=== PATIENT | female | born 1945 | race Caucasian/White ===

== ENCOUNTER 2017-07-27 15:13 | Outpatient (CLI) | payer MEDICARE, BC ==
[~2017-07-27 15:13] MED LIST: Gadobenate Dimeglumine 529 MG/1 ML (20ML VIAL) ONE
== END 2017-07-27 15:14 | disposition home or self-care (01) ==
LOC: BICMAMMO 15:13
PROVIDERS: ATTEND Internal Medicine
DX: Z78.0 Asymptomatic menopausal state (principal); R40.20 Unspecified coma; I67.82 Cerebral ischemia
CPT/HCPCS: 70553; 77080; A9579

== ENCOUNTER 2017-09-08 10:33 | Outpatient (CLI) | payer MEDICARE, BC ==
[2017-09-08 12:28] LABS: Hemoglobin 15.4 g/dL (12.0-16.0); Platelet Count 246 thou/uL (130-400); RBC Distribution Width 12.6 % (11.5-14.5); Red Blood Cell (RBC) Count 5.31 mill/uL (4.20-5.40); White Blood Cell (WBC) Count 6.6 thou/uL (4.8-10.8)
[2017-09-08 12:42] LABS: PTT 33.1 SEC (22.9-36.1)
[2017-09-08 12:43] LABS: Prothrombin Time 13.7 SEC (12.0-14.7)
[2017-09-08 12:51] LABS: ALT (SGPT) Less than 7 U/L (8-55); AST (SGOT) 22 U/L (5-34); Albumin 4.6 g/dL (3.4-4.8); Alkaline Phosphatase 62 U/L (40-150); Anion Gap 16 mmol/L (10-20); BUN (Urea Nitrogen) 30 mg/dL (9.8-20.1); Bilirubin, Total 0.9 mg/dL (0.2-1.2); Calc. Creatinine Clearance 0 mL/min (70-130); Calcium 9.9 mg/dL (7.8-10.44); Carbon Dioxide 26 mmol/L (23-31); Cardiac Risk 3.2 (Less than 4.5); Chloride 100 mmol/L (98-107); Cholesterol 220 mg/dl (< 200 Desired); Estimated GFR-MDRD 56; Globulin 2.7 g/dL (2.4-3.5); Glucose 87 mg/dL (83-110); HDL Cholesterol 68 mg/dL (>60 Neg Risk); LDL Cholesterol, Calculated 137 mg/dL; Potassium 3.8 mmol/L (3.5-5.1); Protein, Total 7.3 g/dL (6.0-8.3); Sodium 138 mmol/L (136-145); Triglycerides 75 mg/dL (Less than 150)
--- NOTE | 2017-10-05 11:05 | EKG ---
Test Reason : Blood Pressure : / mmHG Vent. Rate : 087 BPM Atrial Rate : 087 BPM P-R Int : 162 ms QRS Dur : 076 ms QT Int : 354 ms P-R-T Axes : 077 064 079 degrees QTc Int : 425 ms Normal sinus rhythm Normal ECG No previous ECGs available Confirmed by YU ANGUIANO M.D. ([id number]) on 10/05/2017 11:05:08 AM Referred By: SILVIO Confirmed By:YU ANGUIANO M.D.
== END 2017-09-08 10:34 | disposition home or self-care (01) ==
LOC: LABBT 10:33
PROVIDERS: ATTEND Internal Medicine Cardiovascular Disease
DX: Z01.810 Encounter for preprocedural cardiovascular examination (principal); I47.2 Ventricular tachycardia
CPT/HCPCS: 80053; 80061; 85027; 85610; 85730; 93005; 93010

== ENCOUNTER 2017-09-10 05:57 | Day surgery (SDC) | payer MEDICARE, BC ==
[2017-09-08 11:06] VITALS: BMI 23.2
[2017-09-10] MEDS ORDERED: Heparin 0 ML ONE (06:42)
[2017-09-10] MEDS ORDERED: Lidocaine 1% (PF) 30 ML VIAL ONE ×2 (06:43→08:14)
[2017-09-10] MEDS ORDERED: Fentanyl 100 MCG/2 ML VIAL ONE (09:03)
[2017-09-10] MEDS ORDERED: Midazolam HCl 2 mg/2 ml Vial ONE (09:03)
== END 2017-09-10 12:15 | disposition home or self-care (01) ==
LOC: CCL 05:57
PROVIDERS: ATTEND Internal Medicine Cardiovascular Disease
PROC: 4A023N7 Measurement of Cardiac Sampling and Pressure, Left Heart, Percutaneous Approach (ICD-10-PCS; principal; 2017-09-10)
DX: I47.2 Ventricular tachycardia (principal); G20 Parkinson's disease; I25.10 Atherosclerotic heart disease of native coronary artery without angina pectoris; Z79.899 Other long term (current) drug therapy
CPT/HCPCS: 76942; 93458; C1769; 99152; J1644; J2001; J2250; J3010

== ENCOUNTER 2018-01-06 15:02 | Emergency (ER) | payer MEDICARE, BC ==
[2018-01-06 17:24] LABS: #Eosinphils 0.1 thou/uL (0.0-0.7); #Lymphocytes 2.1 thou/uL (1.20-3.40); #Monocytes 0.4 thou/uL (0.11-0.59); #Neutrophils 3.5 thou/uL (1.40-6.50); %Basophils 0.6 % (0.0-1.0); %Eosinophils 1.2 % (0.0-10.0); %Lymphocytes 34.9 % (21.0-51.0); %Monocytes 6.3 % (0.0-10.0); %Neutrophils 57.1 % (42.0-75.0); Hemoglobin 13.5 g/dL (12.0-16.0); Mean Corpuscular HGB CONC 33.9 g/dL (32.0-36.0); Mean Corpuscular Hemoglobin 29.9 pg (27.0-31.0); Mean Corpuscular Volume 88.2 fL (78.0-98.0); Mean Platelet Volume 8.3 fL (7.4-10.4); Platelet Count 214 thou/uL (130-400); RBC Distribution Width 12.2 % (11.5-14.5); Red Blood Cell (RBC) Count 4.52 mill/uL (4.20-5.40); White Blood Cell (WBC) Count 6.1 thou/uL (4.8-10.8)
--- NOTE | 2018-01-06 17:33 | CT ---
CT BRAIN WITHOUT CONTRAST: 01/06/18 HISTORY: Right sided facial numbness. FINDINGS: No evidence of acute infarct, hemorrhage, midline shift, or abnormal extra-axial fluid collection is seen. the ventricular size is normal and the basilar cisterns patent. The bony calvarium is intact. T he visualized paranasal sinuses and mastoid air cells are well aerated. IMPRESSION: No CT evidence of acute intracranial process. POS: [facility]
[2018-01-06 17:42] LABS: ALT (SGPT) Less than 7 U/L (8-55); AST (SGOT) 20 U/L (5-34); Albumin 4.4 g/dL (3.4-4.8); Alkaline Phosphatase 60 U/L (40-150); Anion Gap 15 mmol/L (10-20); BUN (Urea Nitrogen) 25 mg/dL (9.8-20.1); Bilirubin, Total 0.5 mg/dL (0.2-1.2); Calc. Creatinine Clearance 0 mL/min (70-130); Calcium 9.3 mg/dL (7.8-10.44); Carbon Dioxide 24 mmol/L (23-31); Chloride 108 mmol/L (98-107); Estimated GFR-MDRD 68; Globulin 2.6 g/dL (2.4-3.5); Glucose 88 mg/dL (83-110); Potassium 3.7 mmol/L (3.5-5.1); Sodium 143 mmol/L (136-145)
== END 2018-01-06 18:51 | disposition home or self-care (01) ==
LOC: ERS 15:02
DX: Q67.0 Congenital facial asymmetry (principal); G20 Parkinson's disease; I10 Essential (primary) hypertension
CPT/HCPCS: 36415; 70450; 80053; 85025; 93005

== ENCOUNTER 2018-01-22 12:20 | Outpatient (CLI) | payer MEDICARE, BC | END 2018-01-22 12:21 | disposition home or self-care (01) | LOC: BICMRI 12:20 | PROVIDERS: ATTEND Internal Medicine | DX: H02.401 Unspecified ptosis of right eyelid (principal) | CPT/HCPCS: 36415; 70544; 70551; 83519 ==

== ENCOUNTER 2018-06-29 15:53 | Outpatient (CLI) | payer MEDICARE, BC ==
--- NOTE | 2018-06-29 17:11 | RAD ---
PA AND LATERAL VIEWS OF THE CHEST: 06/29/18 HISTORY: Cough. FINDINGS: Comparison made with exam of 11/28/17. The heart size is borderline and stable. The lungs are well expanded without focal areas of consolida tion, pneumothoraces or pleural effusions. There are degenerative changes in the spine. Mild chronic changes are again seen. IMPRESSION: No radiographic evidence of acute cardiopulmonary process. POS: [facility]
== END 2018-06-29 15:54 | disposition home or self-care (01) ==
LOC: SCSRAD 15:53
PROVIDERS: ATTEND Physician Assistant
DX: R05 Cough (principal)
CPT/HCPCS: 71046

== ENCOUNTER 2018-08-06 09:08 | Outpatient (CLI) | payer MEDICARE, BC ==
[2018-08-06 09:51] LABS: ALT (SGPT) Less than 6 U/L (8-55); AST (SGOT) 22 U/L (5-34); Albumin 4.2 g/dL (3.4-4.8); Alkaline Phosphatase 74 U/L (40-150); Anion Gap 12 mmol/L (10-20); BUN (Urea Nitrogen) 17 mg/dL (9.8-20.1); Bilirubin, Total 0.7 mg/dL (0.2-1.2); Calc. Creatinine Clearance 0 mL/min (70-130); Calcium 9.2 mg/dL (7.8-10.44); Carbon Dioxide 27 mmol/L (23-31); Cardiac Risk 3.4 (Less than 4.5); Chloride 106 mmol/L (98-107); Cholesterol 208 mg/dl (< 200 Desired); Estimated GFR-MDRD 67; Globulin 2.7 g/dL (2.4-3.5); Glucose 91 mg/dL (83-110); HDL Cholesterol 62 mg/dL (>60 Neg Risk); LDL Cholesterol, Calculated 129 mg/dL; Potassium 3.5 mmol/L (3.5-5.1); Protein, Total 6.9 g/dL (6.0-8.3); Sodium 141 mmol/L (136-145); Triglycerides 86 mg/dL (Less than 150)
[2018-08-06 10:02] LABS: #Basophils 0.1 thou/uL (0.0-0.2); #Eosinphils 0.1 thou/uL (0.0-0.7); #Lymphocytes 2.2 thou/uL (1.20-3.40); #Monocytes 0.4 thou/uL (0.11-0.59); #Neutrophils 3.1 thou/uL (1.40-6.50); %Basophils 1.3 % (0.0-1.0); %Eosinophils 1.9 % (0.0-10.0); %Lymphocytes 37.6 % (21.0-51.0); %Monocytes 7.4 % (0.0-10.0); %Neutrophils 51.8 % (42.0-75.0); Hemoglobin 13.5 g/dL (12.0-16.0); Mean Corpuscular HGB CONC 32.8 g/dL (32.0-36.0); Mean Corpuscular Hemoglobin 28.2 pg (27.0-31.0); Mean Corpuscular Volume 85.9 fL (78.0-98.0); Mean Platelet Volume 9.4 fL (7.4-10.4); Platelet Count 223 thou/uL (130-400); RBC Distribution Width 12.6 % (11.5-14.5); Red Blood Cell (RBC) Count 4.79 mill/uL (4.20-5.40); White Blood Cell (WBC) Count 5.9 thou/uL (4.8-10.8)
--- NOTE | 2018-08-06 10:32 | MMO ---
BILATERAL SCREENING MAMMOGRAMS: Date: 08/06/18 Comparison made to prior exam from 2017. This patient's mammogram was interpreted with the assistance of computer-aided detection. FINDINGS: Scattered fibroglandular densities. There are benign calcifications. No evidence of mass or distortio n. No suspicious calcification. No interval change identified. Recommend one year follow-up. IMPRESSION: BIRADS 2: Benign Finding(s) POS: [facility]
== END 2018-08-06 09:09 | disposition home or self-care (01) ==
LOC: SCSMAMMO 09:08
PROVIDERS: ATTEND Internal Medicine
DX: Z12.31 Encounter for screening mammogram for malignant neoplasm of breast (principal); Z13.6 Encounter for screening for cardiovascular disorders; I10 Essential (primary) hypertension; G25.0 Essential tremor; Z92.29 Personal history of other drug therapy
CPT/HCPCS: 36415; 77067; 80053; 80061; 84443; 85025

== ENCOUNTER 2019-02-28 16:59 | Outpatient (CLI) | payer MEDICARE, BC ==
--- NOTE | 2019-02-28 17:58 | RAD ---
THREE VIEWS CERVICAL SPINE: Comparison: None. History: Fall two weeks ago with injury to neck. Neck pain. FINDINGS: Three views of the cervical spine shows normal height and alignment of the vertebral bodies without a cute fracture or subluxation. The intervertebral discs are narrowed and the midcervical spine has sma ll surrounding osteophytes. No prevertebral soft tissue swelling is seen. IMPRESSION: Degenerative changes of the cervical spine without acute osseous abnormality. POS: [facility]
--- NOTE | 2019-02-28 17:59 | RAD ---
THREE VIEWS RIGHT WRIST: Comparison: None. History: Fall two weeks ago with wrist pain. FINDINGS: Three views of the right wrist shows no evidence of acute fracture or dislocation. No degenerative ch anges are seen. No soft tissue swelling is seen. IMPRESSION: Unremarkable exam. POS: [facility]
--- NOTE | 2019-02-28 18:41 | RAD ---
Exam:Left knee 3 view HISTORY: Evaluate for metal. Pain. COMPARISON: None FINDINGS: There is a solitary surgical clip in the popliteal fossa. No additional metal is appreciate d. No fracture. No cortical irregularity. No periosteal reaction. Mild loss of joint space height in the medial compartment. No fracture. No joint effusion. IMPRESSION: Solitary surgical clip in the popliteal fossa.
== END 2019-02-28 17:00 | disposition home or self-care (01) ==
LOC: SCSRAD 16:59
PROVIDERS: ATTEND Physician Assistant
DX: M25.562 Pain in left knee (principal); M25.531 Pain in right wrist; M54.2 Cervicalgia; M47.812 Spondylosis without myelopathy or radiculopathy, cervical region; Z98.890 Other specified postprocedural states
CPT/HCPCS: 72040

== ENCOUNTER 2019-12-02 12:58 | Outpatient (CLI) | payer MEDICARE, BC ==
--- NOTE | 2019-12-02 14:26 | MRI ---
Exam: MRI cervical spine without contrast HISTORY: Cervical arthritis with myelopathy. COMPARISON: None FINDINGS: Appropriate T1 marrow signal intensity of the cervical vertebra. Cervical spine vertebral body heigh t is maintained. No fracture. No significant STIR hyperintensity to suggest ligamentous injury or vertebral body edema Spondylolisthesis: C4-C5 demonstrates 1.9 mm of anterolisthesis C7-T1 demonstrates 1.4 mm of anterolisthesis T1-T2 demonstrate 1 mm of anterolisthesis T2-T3 demonstrates 1.7 mm of anterolisthesis T3-T4 demonstrate 1.9 mm of anterolisthesis C2-C3: No significant central canal stenosis or significant neural foraminal narrowing C3-C4: No significant central canal stenosis or significant neural foraminal narrowing. C4-C5: Moderate loss of disc space height. Broad-based disc osteophyte complex. Mild central canal st enosis. Bilaterally, neural foramina are patent C5-C6: Moderate loss of disc space height. Broad-based discussed by complex effaces the subarachnoid space. Mass effect and deformity the cervical cord. Moderate central canal stenosis. Bilaterally, neural foramina are patent C6-C7: Moderate loss of disc space height. Broad-based discussed by complex abuts the thecal sac. Sub arachnoid space is effaced. Moderate central canal stenosis. Neural foramina are patent C7-T1: No significant central canal stenosis. Mild bilateral neural foraminal narrowing. IMPRESSION: Degenerative changes of the cervical spine as detailed above. Transcribed Date/Time: 12/02/2019 3:17 PM
== END 2019-12-02 12:59 | disposition home or self-care (01) ==
LOC: SCSMRI 12:58
PROVIDERS: ATTEND Orthopaedic Surgery
DX: M46.92 Unspecified inflammatory spondylopathy, cervical region (principal); G95.89 Other specified diseases of spinal cord; M47.812 Spondylosis without myelopathy or radiculopathy, cervical region
CPT/HCPCS: 72141

== ENCOUNTER 2022-04-30 10:04 | Outpatient (CLI) | payer MEDICARE, BC ==
[2022-04-30 11:37] LABS: #Monocytes 0.4 10x3/uL (0.0-1.1); #Neutrophils 3.3 10x3/uL (1.5-8.4); %Basophils 0.6 % (0.0-2.0); %Eosinophils 0.6 % (0.0-6.0); %Lymphocytes 28.9 % (18.0-47.0); %Monocytes 7.3 % (0.0-10.0); %Neutrophils 62.4 % (40.0-75.0); Hemoglobin 12.6 g/dL (12.0-15.5); Mean Corpuscular HGB CONC 32.6 g/dL (32.0-36.0); Mean Corpuscular Hemoglobin 28.1 pg (27.0-33.0); Mean Platelet Volume 11.1 fl (7.4-10.4); Platelet Count 297 10x3/uL (150-450); Red Blood Cell (RBC) Count 4.49 10x6/uL (3.90-5.03); White Blood Cell (WBC) Count 5.3 10x3/uL (3.5-10.5)
[2022-04-30 11:59] LABS: Prothrombin Time 10.7 sec (9.5-12.1)
[2022-04-30 12:13] LABS: Anion Gap 14 mmol/L (10-20); BUN (Urea Nitrogen) 19 mg/dL (9.8-20.1); Calc. Creatinine Clearance 0 mL/min (70-130); Carbon Dioxide 27 mmol/L (23-31); Chloride 106 mmol/L (98-107); Estimated GFR 70; Glucose 87 mg/dL (83-110); Potassium 3.9 mmol/L (3.5-5.1); Sodium 143 mmol/L (136-145)
== END 2022-04-30 10:05 | disposition home or self-care (01) ==
LOC: LABBT 10:04
PROVIDERS: ATTEND Orthopaedic Surgery
DX: Z01.812 Encounter for preprocedural laboratory examination (principal); M17.12 Unilateral primary osteoarthritis, left knee
CPT/HCPCS: 80048; 85025; 85610; 87081

== ENCOUNTER 2022-05-06 05:37 | Inpatient (IN) | payer MEDICARE, BC ==
[2022-05-06] MEDS ORDERED: Sodium Chloride 0.9% 100 ML ONE ×2 (06:01→07:10)
[2022-05-06] MEDS ORDERED: Vancomycin 1 GM/200 ML (FROZEN) BAG ONE (06:01)
[2022-05-06] MEDS ORDERED: Tranexamic Acid 1,000 MG/10 ML VIAL ONE ×2 (06:01→09:35)
[2022-05-06] MEDS ORDERED: Bupivacaine PF 0.5% 30 ML VIAL ONE (06:50)
[2022-05-06] MEDS ORDERED: Midazolam HCl 2 mg/2 ml Vial ONE (06:54)
[2022-05-06] MEDS ORDERED: Ropivacaine 0.5% HCl/PF (150 MG/30 ML VIAL) ONE (06:54)
[2022-05-06] MEDS ORDERED: FENTANYL 50 MCG/ML 1 ML VIAL ONE ×4 (06:54→11:55)
[2022-05-06] MEDS ORDERED: CEFAZOLIN 2 GM VIAL ONE (07:10)
[2022-05-06] MEDS ORDERED: fentaNYL PF 100 MCG/2 ML SYRINGE ONE (07:10)
[2022-05-06] MEDS ORDERED: PROPOFOL 200 MG/20 ML VIAL ONE (07:12)
[2022-05-06] MEDS ORDERED: Dexamethasone 20 MG/5 ML VIAL ONE (07:12)
[2022-05-06] MEDS ORDERED: Ketorolac Tromethamine 30 MG/ML VIAL ONE ×2 (07:12→12:18)
[2022-05-06] MEDS ORDERED: Ondansetron PF 4 MG/2 ML Vial ONE (07:12)
[2022-05-06 08:04] LABS: SARS-CoV-2 NAA Rapid Test Not Detected (NotDetected)
[2022-05-06] MEDS ORDERED: Ondansetron HCl/PF 4 MG/2 ML Vial IVP PRN (09:07)
[2022-05-06] MEDS ORDERED: Ondansetron PF 4 MG/2 ML Vial IVP PRN ×2 (09:07→09:15)
[2022-05-06] MEDS ORDERED: Acetaminophen 325 MG TAB PO PRN (09:07)
[2022-05-06] MEDS ORDERED: Promethazine HCl 25 MG/ML VIAL IVPB PRN (09:07)
[2022-05-06] MEDS ORDERED: diphenhydrAMINE 25 MG CAP PO PRN (09:07)
[2022-05-06] MEDS ORDERED: Promethazine HCl 25 MG/ML VIAL IM PRN ×3 (09:07→09:15)
[2022-05-06] MEDS ORDERED: Zolpidem Tartrate 5 MG TAB PO PRN ×2 (09:07→09:15)
[2022-05-06] MEDS ORDERED: FENTANYL 50 MCG/ML 1 ML VIAL SLOW IVP PRN (09:10)
[2022-05-06] MEDS ORDERED: traMADol HCl 50 MG TAB PO PRN ×2 (09:15)
[2022-05-06] MEDS ORDERED: HYDROcodone/Acetaminophen 10/325 mg Tablet PO PRN ×2 (09:15)
[2022-05-06] MEDS ORDERED: Ropivacaine 0.2% 550 ML 550 ML NERVE BLCK SCH (09:15)
[2022-05-06] MEDS ORDERED: Metoprolol Tartrate 5 MG/5 ML VIAL ONE ×2 (09:58→10:34)
[2022-05-06] MEDS ORDERED: hydrALAZINE 20 MG/ML VIAL ONE (10:34)
[2022-05-06] MEDS: Sodium Chloride 0.9% 1,000 ML IV SCH ×2 (11:02→18:16)
[2022-05-06] MEDS: Ketorolac Tromethamine 30 MG/ML VIAL IVP SCH ×3 (12:23→23:46)
[2022-05-06] MEDS: Carbidopa/Levodopa 25-100 mg Tablet PO SCH ×4 (13:26→20:16)
[2022-05-06] MEDS: CEFAZOLIN 2 GM in Sodium Chloride 0.9% 100 ML IVPB SCH ×2 (14:51→23:46)
[2022-05-06] MEDS ORDERED: FLU VACC QS2022-23(65YR UP)/PF 240 MCG/0.7 ML SYRINGE IM ONE (15:30)
[2022-05-06] MEDS ORDERED: Vancomycin 1 GM in Premix Bag 1 BAG IVPB SCH (18:00)
[2022-05-06] MEDS: Ferrous Gluconate 324 MG TAB PO SCH (20:16)
[2022-05-06] MEDS: Amitriptyline HCl 10 MG TAB PO SCH (20:16)
[2022-05-06] MEDS: Senokot S 8.6-50 MG TAB PO SCH (20:16)
[2022-05-06] MEDS: Aspirin 81 mg Enteric Coated Tablet PO SCH (20:16)
[2022-05-07] MEDS: Sodium Chloride 0.9% 1,000 ML IV SCH ×2 (04:31→14:44)
[2022-05-07] MEDS: Ketorolac Tromethamine 30 MG/ML VIAL IVP SCH ×3 (06:11→17:40)
[2022-05-07 06:38] LABS: Mean Corpuscular HGB CONC 32.5 g/dL (32.0-36.0); Mean Corpuscular Hemoglobin 29.1 pg (27.0-31.0); Mean Corpuscular Volume 89.6 fl (78.0-98.0); Platelet Count 200 10x3/uL (130-400); RBC Distribution Width 12.3 % (11.5-14.5); Red Blood Cell (RBC) Count 3.79 mill/uL (4.20-5.40); White Blood Cell (WBC) Count 7.3 10x3/uL (4.8-10.8)
[2022-05-07] MEDS: Aspirin 81 mg Enteric Coated Tablet PO SCH ×2 (08:43→20:27)
[2022-05-07] MEDS: Multivitamin W/ Minerals 1 TAB PO SCH (08:43)
[2022-05-07] MEDS: Ferrous Gluconate 324 MG TAB PO SCH ×2 (08:44→20:26)
[2022-05-07] MEDS: Senokot S 8.6-50 MG TAB PO SCH ×2 (08:44→20:27)
[2022-05-07] MEDS: Carbidopa/Levodopa 25-100 mg Tablet PO SCH ×4 (08:44→20:29)
[2022-05-07] MEDS: Amlodipine 10 MG TAB PO SCH (08:46)
[2022-05-07] MEDS: Metoprolol Tartrate 25 MG TAB PO SCH ×2 (08:48→20:27)
[2022-05-07 14:13] VITALS: BMI 3374.4
[2022-05-07] MEDS: Amitriptyline HCl 10 MG TAB PO SCH (20:26)
[2022-05-08] MEDS: Ketorolac Tromethamine 30 MG/ML VIAL IVP SCH ×2 (00:33→05:39)
[2022-05-08] MEDS: Sodium Chloride 0.9% 1,000 ML IV SCH ×2 (00:34→12:51)
[2022-05-08 05:54] LABS: Hemoglobin 10.8 g/dL (12.0-16.0); Mean Corpuscular HGB CONC 32.8 g/dL (32.0-36.0); Mean Corpuscular Hemoglobin 29.6 pg (27.0-31.0); Mean Corpuscular Volume 90.2 fl (78.0-98.0); Mean Platelet Volume 9.1 fL (7.4-10.4); Platelet Count 180 10x3/uL (130-400); RBC Distribution Width 12.3 % (11.5-14.5); Red Blood Cell (RBC) Count 3.67 mill/uL (4.20-5.40); White Blood Cell (WBC) Count 7.3 10x3/uL (4.8-10.8)
[2022-05-08] MEDS: Metoprolol Tartrate 25 MG TAB PO SCH (09:34)
[2022-05-08] MEDS: Multivitamin W/ Minerals 1 TAB PO SCH (09:34)
[2022-05-08] MEDS: Senokot S 8.6-50 MG TAB PO SCH (09:34)
[2022-05-08] MEDS: Aspirin 81 mg Enteric Coated Tablet PO SCH (09:34)
[2022-05-08] MEDS: Ferrous Gluconate 324 MG TAB PO SCH (09:34)
[2022-05-08] MEDS: Amlodipine 10 MG TAB PO SCH (09:35)
[2022-05-08] MEDS: Carbidopa/Levodopa 25-100 mg Tablet PO SCH ×2 (09:36→14:56)
[2022-05-08 15:51] VITALS: BP 145/74; TEMP 98.2
== END 2022-05-08 17:39 | disposition home or self-care (01) | DRG 470 ==
LOC: SDC 05:37 → SURG A 14:57 → OBSVTOIN 05-07 07:27
PROVIDERS: ADMIT Orthopaedic Surgery; ATTEND Orthopaedic Surgery
PROC: 0SRD0J9 Replacement of Left Knee Joint with Synthetic Substitute, Cemented, Open Approach (ICD-10-PCS; principal; 2022-05-06)
DX: M17.12 Unilateral primary osteoarthritis, left knee (principal); Z66 Do not resuscitate; Z20.822 Contact with and (suspected) exposure to COVID-19; I10 Essential (primary) hypertension; G20 Parkinson's disease; F41.9 Anxiety disorder, unspecified; Z79.899 Other long term (current) drug therapy; Z79.82 Long term (current) use of aspirin
CPT/HCPCS: 36415; 85027; 96365; 96367; 96375; 96376; A4306; C1713; C1776; G0378; J0360; J1100; J1885; J2250; J2405; J2704; J2795; J3010; J3370; J3370-JW; J3490; J7050; S0020; U0002

== ENCOUNTER 2024-04-29 09:01 | Outpatient (CLI) | payer MEDICARE, BC | END 2024-04-29 09:02 | disposition home or self-care (01) | LOC: NM 09:01 | PROVIDERS: ATTEND Psychiatry & Neurology Neurology | DX: G20.C Parkinsonism, unspecified (principal); R94.8 Abnormal results of function studies of other organs and systems | CPT/HCPCS: 78803; A9584 ×2 ==

== ENCOUNTER 2024-07-05 15:10 | Outpatient (CLI) | payer MEDICARE, BC | END 2024-07-05 15:11 | disposition home or self-care (01) | LOC: SCSRAD 15:10 | PROVIDERS: ATTEND Internal Medicine | DX: M54.50 Low back pain, unspecified (principal); M25.552 Pain in left hip; M47.816 Spondylosis without myelopathy or radiculopathy, lumbar region; M47.817 Spondylosis without myelopathy or radiculopathy, lumbosacral region | CPT/HCPCS: 72100 ==